=== PATIENT | male | born 1990 | race Caucasian/White ===

== ENCOUNTER 2018-01-19 14:56 | Inpatient (IN) | payer OTHER ==
[~2018-01-19] VITALS: Ht 167.6 cm; Wt 80.0 kg
[2018-01-19 14:59] VITALS: Ht 167.6 cm; Wt 80.0 kg
[2018-01-19 16:05] LABS: microscopic required? NO
[2018-01-19 16:10] LABS: urine erythrocyte NEGATIVE (NEGATIVE)
[2018-01-19 16:20] LABS: CALCIUM 10.4 mg/dL (8.5-10.1); CARBON DIOXIDE 28.9 mmol/L (21-32); CHLORIDE SERUM 100 mmol/L (98-107); CREATININE SERUM 1.1 mg/dL (0.7-1.3); GFR1 > 60 mL/min; GLUCOSE SERUM 101 mg/dL (74-106); POTASSIUM SERUM 3.8 mmol/L (3.5-5.1); SODIUM SERUM 138 mmol/L (136-145)
[2018-01-19 16:24] LABS: ALBUMIN 4.8 g/dL (3.4-5.0); ALKALINE PHOSPHATASE 61 U/L (46-116); ALT/SGPT 27 U/L (16-63); AMYLASE 46 U/L (25-115); AST/SGOT 16 U/L (15-37); BILIRUBIN TOTAL 0.74 mg/dL (0.20-1.00); LIPASE 132 IU/L (73-393)
[2018-01-19 16:26] LABS: PLATELET COUNT 296 x10^3mcL (130-400); RED CELL DISTRIBUTION WIDTH 13.6 % (11.5-14.5); TOTAL PROTEIN, SERUM 8.5 g/dL (6.4-8.2)
[2018-01-19 16:35] LABS: BASOPHIL % 0 % (0-2)
[2018-01-19 18:12] VITALS: BP 109/54
[2018-01-19 18:12] LABS: AMPHETAMINE QUAL UR NONE DETECTED (NEG <=1000)
[2018-01-19 18:16] LABS: CHOLESTEROL/HDL RATIO 4.3; MAGNESIUM 1.9 mg/dL (1.8-2.4); PHOSPHOROUS 2.9 mg/dL (2.5-4.9)
[2018-01-19 18:23] LABS: T3 TOTAL 0.98 ng/mL
[2018-01-19 18:25] LABS: FREE T4 1.07 ng/dL (0.76-1.46); FREE THYROXINE INDEX 3.1 ug/dL (1.4-4.5); T4(THYROXINE) 8.5 ug/dL (4.7-13.3)
[2018-01-19 21:40] VITALS: BP 121/65
[2018-01-19 21:59] VITALS: BP 121/65
[2018-01-19 22:17] VITALS: BP 115/64
[2018-01-19 22:33] VITALS: BP 113/65
[2018-01-19 23:39] VITALS: BP 113/59
[2018-01-20 00:35] VITALS: BP 108/59
[2018-01-20 01:29] VITALS: BP 110/67
[2018-01-20 05:55] VITALS: BP 102/44
[2018-01-20 10:22] VITALS: BP 110/64
[2018-01-20 12:53] LABS: BASOPHIL % 0.1 % (0-2); PLATELET COUNT 247 x10^3mcL (130-400); RED CELL DISTRIBUTION WIDTH 13.7 % (11.5-14.5)
[2018-01-20 13:42] VITALS: BP 113/60
[2018-01-20] MEDS ORDERED: NORCO1 TA2 PO (13:43)
[2018-01-20] MEDS ORDERED: COL100 PO (13:43)
[2018-01-20] MEDS ORDERED: GAS RELIEF 8080 MG PO (13:44)
[2018-01-20 14:06] VITALS: BP 113/60
== END 2018-01-20 14:45 | disposition home or self-care (01) | DRG 343 ==
LOC: ED 14:56 → DU 17:17
PROVIDERS: Emergency Medicine; Family Medicine; Surgery
PROC: 0DTJ4ZZ Resection of Appendix, Percutaneous Endoscopic Approach (ICD-10-PCS; principal; 2018-01-19 18:00)
DX: K35.80 Unspecified acute appendicitis (principal); E78.5 Hyperlipidemia, unspecified; E83.52 Hypercalcemia; D64.9 Anemia, unspecified; E83.51 Hypocalcemia
CPT/HCPCS: 83880; 84439; 94150; J1644; J1885; J2175; J2250; J2543; J3010; J3490; J7030; Q0092; Q0162